=== PATIENT | male | born 1960 | race Caucasian/White ===

== ENCOUNTER 2017-02-07 16:58 | Emergency (ER) | payer MEDICARE, OTHER ==
--- NOTE | ~2017-02-07 | ER ---
Unit #: [id number] #: [id number] Patient: SHARIF MADISON JR [id number] [address] [place], [place] [address] [id number] MR#: [id number] NAME: SHARIF MADISON JR ROOM: Sex: M Age: 56 : 1960 Service Date: 02/07/2017 Attending Physician: Renato Reid M.D. Primary Care Physician: No Primary Care Physician EMERGENCY DEPT PHYSICIAN NOTE Please see the written T-sheet for the full details of the encounter. Mr. Madison is a 56-year-old man who denied significant past medical history and presented to the emergency department tonight with a chief complaint of epigastric discomfort and early satiety for several months. The patient stated that he had significant difficulty with eating, causing increased pain in his epigastric area and a feeling of fullness. The patient stated that he had been treated once before by a primary doctor with some liquid which helped alleviate his symptoms. However, he was very uncertain as to the purpose or name of the liquid that helped him in the past. He also complained of urinary difficulty, hesitancy and urgency but was unaware of any previous history regarding his prostate. Blood work that was obtained prior to me seeing the patient all appeared in normal limits except microscopic hematuria was present on the urinalysis. After discussing the patient's multiple complaints and the chronicity with the patient, I advised that we should give him medications by IV and obtain a CAT scan to better understand the mechanisms underlying his chief complaints as well as rule in or rule out any concerning abnormality. When the nurse went to place the IV, the patient adamantly refused IV access stating he did not want anything through the IV, he only wanted this aforementioned liquid that had helped him in the past. He additionally refused the CAT scan. I attempted to convince the patient to at least allow us to place the IV to give IV contrast and, failing that, obtain the CAT scan to again better address his complaint. However, the patient had no interest in completing these tests or having an IV placed. I explained to the patient that since he was very unclear about what this liquid was or what function it served, I would be unable to write him anything equivalent. I offered to write some medications that I thought might help his complaint in pill form. However, he stated that he could not take pills because they caused palpitations that he believe was related to a heart murmur that was diagnosed when he was a child. As the patient was unwilling to undergo further testing, I asked the patient to sign out against medical advice to which he was amenable. I explained that without conducting the CAT scan, he was at risk for an undiagnosed condition or worsening of a chronic condition. And that should he change his mind and desire to have the CAT scan or any additional testing, he could return at any time. As he stated that this previous liquid with which he had had some success, was prescribed by a primary doctor at [facility], [place]. I encouraged the patient to reconnect with this doctor so that he could be re-evaluated and, if this medicine was still appropriate, perhaps could be prescribed for him again. Unit #: [id number] #: [id number] Patient: SHARIF MADISON Dictated by... Jarred Griffni/boris TD: 02/08/2017 07:52 JOB #: [id number] EMERGENCY DEPT PHYSICIAN NOTE Page 1 of 1 X Renato Reid MD EMERGENCY DEPARTMENT REPORT
[2017-02-07 17:40] LABS: BASOPHIL# 0.1 X10e3 (0-0.3); BASOPHIL% 0.5 % (0-2.5); EOSINOPHIL# 0.1 X10e3 (0-0.7); EOSINOPHIL% 1.5 % (0.0-7.0); HEMATOCRIT 46.1 % (38.0-50.0); HEMOGLOBIN 15.3 gm/dL (13.0-16.0); LYMPHOCYTE# 1.6 X10e3 (1.0-3.5); MEAN CORPUSCULAR HGB CONC 33.3 g/dL (30-36); MEAN PLATELET VOLUME 8.9 FL (6.5-11.5); MONOCYTE# 0.4 X10e3 (0-1.0); MONOCYTE% 4.1 % (3.0-12.0); NEUTROPHIL# 7.9 X10e3 (1.5-7.1); NEUTROPHIL% 77.9 % (40-75); RED BLOOD COUNT 4.65 X10e (3.90-5.60); RED CELL DISTRIBUTION WIDTH 13.4 % (11.0-15.5); WHITE BLOOD COUNT 10.2 X10e3 (4.0-10.5)
[2017-02-07 17:51] LABS: DIFF IND NO
[2017-02-07 17:52] LABS: PLATELET COUNT 213 X10e3 (140-420)
[2017-02-07 17:55] LABS: ALBUMIN SERUM 4.4 g/dL (3.5-5.0); BILIRUBIN, DIRECT 0.1 mg/dL (0.0-0.2); BILIRUBIN,INDIRECT 0.3 mg/dL (0.0-0.9); BILIRUBIN,TOTAL 0.4 mg/dL (0.2-2.0); BUN/CREATININE RATIO 5.55; CALCIUM SERUM 9.1 mg/dL (8.4-10.2); CREATININE SERUM 0.9 mg/dL (0.6-1.4); GLOM FILT RATE Estimated 95.8 mL/min (>60); POTASSIUM 4.3 mmol/L (3.5-5.1); PROTEIN TOTAL SERUM 7.4 g/dL (6.0-8.3)
[2017-02-07 19:42] LABS: URINE SOURCE CLEAN CATCH
[2017-02-07 19:47] LABS: URINE APPEARANCE CLEAR; URINE BILIRUBIN NEG (NEG); URINE BLOOD 2+ (NEG); URINE COLOR YELLOW; URINE GLUCOSE NEG (NEG); URINE KETONE NEG (NEG); URINE LEUKOCYTE ESTERASE TRACE (NEG); URINE NITRATE NEG (NEG); URINE PROTEIN TRACE (NEG); URINE SPECIFIC GRAVITY 1.016 (1.003-1.035)
[2017-02-07 19:50] LABS: U HYALINE CASTS AUWI 0-2 /[LPF]; URBCS1 AUWI 25-50 /[HPF] (0-2); URINE BACTERIA AUWI NEG (NEGATIVE); URINE SQUAMOUS EPITHELIAL CELL NONE SEEN /[HPF]; UWBCS1 AUWI 0-2 (0-5)
[2017-02-07 19:52] LABS: CULTURE INDICATED? NO
== END 2017-02-07 21:10 | disposition home or self-care (01) ==
LOC: CED 16:58
PROVIDERS: Emergency Medicine
DX: R10.9 Unspecified abdominal pain (principal); R30.0 Dysuria; F17.200 Nicotine dependence, unspecified, uncomplicated
CPT/HCPCS: 36415; 80048; 80076; 81003; 82150; 83690; 85025; 99284; C9113; J2765

== ENCOUNTER 2017-02-11 20:09 | Emergency (ER) | payer MEDICARE, OTHER ==
[2017-02-11 21:01] LABS: URINE SOURCE CLEAN CATCH
[2017-02-11 21:09] LABS: URINE APPEARANCE CLEAR; URINE BILIRUBIN NEG (NEG); URINE BLOOD 2+ (NEG); URINE COLOR YELLOW; URINE GLUCOSE NEG (NEG); URINE KETONE NEG (NEG); URINE LEUKOCYTE ESTERASE NEG (NEG); URINE NITRATE NEG (NEG); URINE PROTEIN TRACE (NEG); URINE SPECIFIC GRAVITY 1.013 (1.003-1.035)
[2017-02-11 21:12] LABS: URBCS1 AUWI 25-50 /[HPF] (0-2); URINE BACTERIA AUWI NEG (NEGATIVE); URINE SQUAMOUS EPITHELIAL CELL NONE SEEN /[HPF]; UWBCS1 AUWI 0-2 (0-5)
[2017-02-11 21:20] LABS: CULTURE INDICATED? NO
== END 2017-02-11 22:24 | disposition home or self-care (01) ==
LOC: CED 20:09
PROVIDERS: Emergency Medicine
DX: N40.0 Benign prostatic hyperplasia without lower urinary tract symptoms (principal); R33.9 Retention of urine, unspecified; F41.9 Anxiety disorder, unspecified; F17.200 Nicotine dependence, unspecified, uncomplicated
CPT/HCPCS: 81003; 99283